=== PATIENT | female | born 1965 | race Caucasian/White ===

== ENCOUNTER 2022-03-03 17:22 | Inpatient (IN) | payer OTHER ==
[~2022-03-03] VITALS: Ht 154.9 cm; Wt 90.2 kg
[2022-03-03] MEDS ORDERED: CLON0.5T2 PO (17:40)
[2022-03-03] MEDS ORDERED: BUPR1SUB5 SL ×2 (17:53→23:36)
[2022-03-03] MEDS ORDERED: ASPI81CH33 PO (17:53)
[2022-03-03] MEDS ORDERED: ACETAMINOPHEN TAB 650MG DOSE (2X325MG) PO ONE (18:25)
[2022-03-03] MEDS ORDERED: NS 1,000 ML IV ONE ×2 (18:35→20:00)
[2022-03-03 19:15] LABS: INR 1.15; PROTHROMBIN TIME 15.1 SECONDS (12.7-14.5)
[2022-03-03 19:16] LABS: PARTIAL THROMBOPLASTIN TIME 30.4 SECONDS (25.9-37.0)
[2022-03-03 19:44] LABS: BASO % 0.3 % (0.0-1.0); EOS % 0.1 % (0.0-3.0); HEMATOCRIT 30.5 % (36.0-47.0); HEMOGLOBIN 10.1 g/dl (12.0-15.5); LYMPH # 0.5 10^3/uL (1.5-5.0); LYMPH % 4.3 % (24.0-44.0); MEAN CORPUSCULAR HEMOGLOBIN 25.6 pg (27.0-33.0); MEAN CORPUSCULAR HGB CONC 33.1 g/dl (32.0-36.5); MEAN CORPUSCULAR VOLUME 77.2 fl (80.0-96.0); MONO # 0.6 10^3/uL (0.0-0.8); MONO % 5.6 % (2.0-8.0); NEUTROPHILS % 88.9 % (36.0-66.0); PLATELET COUNT, AUTOMATED 102 10^3/uL (150-450); RED BLOOD COUNT 3.95 10^6/uL (4.00-5.40); WHITE BLOOD COUNT 11.3 10^3/uL (4.0-10.0)
[2022-03-03 19:55] LABS: ALBUMIN 2.7 GM/DL (3.2-5.2); ALT/SGPT 34 U/L (12-78); AMYLASE 14 U/L (25-115); BILIRUBIN,DIRECT 0.3 MG/DL (0.0-0.2); BILIRUBIN,TOTAL 0.7 MG/DL (0.2-1.0); BLOOD UREA NITROGEN 41 MG/DL (7-18); CALCIUM LEVEL 8.7 MG/DL (8.5-10.1); CARBON DIOXIDE LEVEL 21 MEQ/L (21-32); CHLORIDE LEVEL 96 MEQ/L (98-107); CREATININE FOR GFR 1.47 MG/DL (0.55-1.30); GLOMERULAR FILTRATION RATE 39.3 (>51); GLUCOSE, FASTING 446 MG/DL (70-100); POTASSIUM SERUM 4.5 MEQ/L (3.5-5.1); SODIUM LEVEL 128 MEQ/L (136-145); TOTAL PROTEIN 6.6 GM/DL (6.4-8.2)
[2022-03-03] MEDS ORDERED: INSULIN REGULAR IN 0.9 % NACL 100 UNIT in IV 1 EA IV SCH ×6 (20:00→21:30)
[2022-03-03] MEDS ORDERED: INSULIN IV RATE CHANGE DOCUMENTATION ML/HR XX SCH (20:00)
[2022-03-03 20:12] LABS: CK-MB VALUE MASS < 1.0 NG/ML (<3.6); CPK CREATINE PHOSPHOKINASE 105 U/L (26-192); MB/CK RELATIVE INDEX 0.95 (< OR =4)
[2022-03-03 20:45] LABS: HEMOGLOBIN A1c 8.8 %
[2022-03-03] MEDS ORDERED: ISOVUE-370 76% 100ML VIAL As Ordered ONE (20:55)
[2022-03-03 21:00] LABS: ACETONE/KETONE 25.92 MG/DL (<2.81); ETHYL ALCOHOL (ETHANOL) < 0.003 % (0.000-0.010)
[2022-03-03 21:13] LABS: AMORPHOUS SEDIMENT SMALL (NEGATIVE); APPEARANCE, URINE HAZY (CLEAR); BACTERIA, URINE AUTO 1+ (NEGATIVE); BILIRUBIN, URINE AUTO NEGATIVE (NEGATIVE); BLOOD, URINE BLOOD 1+ (NEGATIVE); COLOR, URINE YELLOW (YELLOW); GLUCOSE, URINE (UA) AUTO 3+ mg/dL (NEGATIVE); KETONE, URINE AUTO 1+ mg/dL (NEGATIVE); LEUKOCYTE ESTERASE, URINE AUTO TRACE (NEGATIVE); MUCUS, URINE SMALL (NEGATIVE); NITRITE, URINE AUTO NEGATIVE (NEGATIVE); PROTEIN, URINE AUTO 2+ mg/dL (NEGATIVE); RBC, URINE AUTO 1 /HPF (0-3); SPECIFIC GRAVITY URINE AUTO 1.016 (1.002-1.035); SQUAMOUS EPITHELIAL CELL UR AU 2 /HPF (0-6); UROBILINOGEN, URINE AUTO 0.2 mg/dL (0.0-2.0); WBC, URINE AUTO 13 /HPF (0-3)
[2022-03-03 21:22] LABS: ABG BASE EXCESS -4.4 (-2.0-2.0); ABG O2 SATURATION 96.6 % (95.0-99.0); ABG PARTIAL PRESSURE CO2 28.9 mmHg (35.0-45.0); ABG PARTIAL PRESSURE O2 96.8 mmHg (75.0-100.0); ABG STANDARD HCO3 20.8 MEQ/L (22.0-26.0); ABG TOTAL CO2 19.9 MEQ/L (22.0-29.0); ABG pH (ARTERIAL) 7.436 UNITS (7.350-7.450)
[2022-03-03] MEDS ORDERED: GLUCAGON INJ 1MG VIAL SC PRN (23:10)
[2022-03-03] MEDS ORDERED: GLUCOSE 4GM CHEW TABLET PO PRN (23:10)
[2022-03-03] MEDS ORDERED: DEXTROSE 50% 50 ML SYRINGE IV PRN (23:10)
[2022-03-03] MEDS ORDERED: CLON2TAB7 PO (23:36)
[2022-03-03] MEDS ORDERED: TIZA10TA PO (23:36)
[2022-03-03] MEDS ORDERED: VITA500038 PO (23:36)
[2022-03-03] MEDS ORDERED: PRAZ1CAP PO (23:36)
[2022-03-03] MEDS ORDERED: VRAY3CAP PO (23:36)
[2022-03-03] MEDS ORDERED: AMIT25TA17 PO (23:36)
[2022-03-03] MEDS ORDERED: RAMI1CAP24 PO (23:36)
[2022-03-03] MEDS ORDERED: ASPI-161 PO (23:36)
[2022-03-03] MEDS ORDERED: ELIQ5TAB PO (23:37)
[2022-03-03] MEDS ORDERED: PANT-23 PO (23:37)
[2022-03-03] MEDS ORDERED: LEXA1TAB PO (23:37)
[2022-03-03] MEDS ORDERED: BISO5TAB14 PO (23:37)
[2022-03-03] MEDS ORDERED: DILT180C78 PO (23:37)
[2022-03-03] MEDS ORDERED: ROPI1TAB3 PO (23:37)
[2022-03-03] MEDS ORDERED: PATIENT COMMENT (23:38)
[2022-03-03] MEDS ORDERED: KAZA1000 PO (23:40)
[2022-03-03] MEDS ORDERED: HOME MED LIST COMPLETE! XX SCH (23:45)
[2022-03-04] MEDS ORDERED: AZITHROMYCIN INJ 500 MG, VIAL MATE ADAPTER 1 EACH in NS 250 ML IV SCH ×3
[2022-03-04] MEDS: INSULIN LISPRO (NovoLOG) PER UNIT SC SCH ×5 (00:18→23:14)
[2022-03-04] MEDS: CEFEPIME HCL 2 GM in D5W 50 ML IV SCH ×3 (01:40→21:22)
[2022-03-04] MEDS ORDERED: VANCOMYCIN HCL 1,000 MG, VIAL MATE ADAPTER 1 EACH in NS 250 ML IV SCH ×2 (02:00→17:20)
[2022-03-04 02:11] LABS: AMPHETAMINES LEVEL URINE NEGATIVE (NEGATIVE); BARBITURATES URINE NEGATIVE (NEGATIVE); BENZODIAZEPINES URINE NEGATIVE (NEGATIVE); CANNABINOIDS URINE NEGATIVE (NEGATIVE); COCAINE METABOLITE URINE NEGATIVE (NEGATIVE); METHADONE URINE NEGATIVE (NEGATIVE); OPIATES URINE NEGATIVE (NEGATIVE); PHENCYCLIDINE URINE NEGATIVE (NEGATIVE)
[2022-03-04] MEDS: ACETAMINOPHEN TAB 650MG DOSE (2X325MG) PO PRN ×3 (02:44→21:23)
[2022-03-04] MEDS ORDERED: VANCOMYCIN HCL 1,000 MG, VIAL MATE ADAPTER 1 EACH in NS 250 ML IV ONE (03:00)
[2022-03-04 03:03] VITALS: BP 124/60
[2022-03-04] MEDS: HEPARIN SOD (PORCINE) 5000UNITS/ML 1ML VIAL/SYRINGE SC SCH ×2 (05:16→14:29)
[2022-03-04 05:46] LABS: HEMATOCRIT 26.7 % (36.0-47.0); HEMOGLOBIN 8.7 g/dl (12.0-15.5); MEAN CORPUSCULAR HEMOGLOBIN 24.9 pg (27.0-33.0); MEAN CORPUSCULAR HGB CONC 32.6 g/dl (32.0-36.5); MEAN CORPUSCULAR VOLUME 76.5 fl (80.0-96.0); RED BLOOD COUNT 3.49 10^6/uL (4.00-5.40); WHITE BLOOD COUNT 7.1 10^3/uL (4.0-10.0)
[2022-03-04 06:16] LABS: ALBUMIN 2.2 GM/DL (3.2-5.2); BILIRUBIN,TOTAL 0.6 MG/DL (0.2-1.0); CALCIUM LEVEL 7.9 MG/DL (8.5-10.1); CREATININE FOR GFR 1.15 MG/DL (0.55-1.30); GLOMERULAR FILTRATION RATE 52.2 (>51); POTASSIUM SERUM 3.9 MEQ/L (3.5-5.1); TOTAL PROTEIN 5.6 GM/DL (6.4-8.2)
[2022-03-04 06:17] LABS: PLATELET COUNT, AUTOMATED 85 10^3/uL (150-450)
[2022-03-04 07:26] VITALS: BP 125/66
[2022-03-04 08:45] LABS: VANCOMYCIN RANDOM 43.4 UG/ML
[2022-03-04] MEDS: ASPIRIN 81MG ENTERIC TABLET PO SCH (09:00)
[2022-03-04] MEDS: bisoproloL fumarate 5 MG TAB PO SCH (09:00)
[2022-03-04] MEDS: diltiaZEM **CD** 180 MG CAP PO SCH (09:00)
[2022-03-04] MEDS: PANTOPRAZOLE 40MG TAB (PROTONIX) PO SCH (09:00)
[2022-03-04] MEDS: ESCITALOPRAM OXALATE 10 MG TAB (LEXAPRO) PO SCH (09:00)
[2022-03-04] MEDS: NS 1,000 ML IV SCH ×2 (10:55→23:13)
[2022-03-04] MEDS ORDERED: PROHANCE 279.3MG/ML 15ML VIAL As Ordered ONE (11:24)
[2022-03-04 12:20] VITALS: BP 148/76
[2022-03-04 13:34] LABS: ERYTHROCYTE SEDIMENTATION RATE 128 mm/hr (0-30)
[2022-03-04 16:00] VITALS: BP 163/80
[2022-03-04] MEDS ORDERED: AMPICILLIN SOD 2 GM in D5W MINI-BAG PLUS 100 ML IV SCH (19:00)
[2022-03-04 20:00] VITALS: BP 139/87
[2022-03-04] MEDS ORDERED: LEVEMIR (INSULIN DETEMIR) 1 UNITS/0.01ML SC SCH (21:00)
[2022-03-04] MEDS: BUPRENORPHINE/NALOXONE 8-2MG SUBLINGUAL TABLET(SUBOXONE) SL SCH (21:23)
[2022-03-04] MEDS: APIXABAN 5 MG TAB (ELIQUIS) PO SCH (21:23)
[2022-03-04] MEDS: rOPINIRole 1MG TAB PO SCH (21:23)
[2022-03-05] VITALS: BP 101/57
[2022-03-05 04:00] VITALS: BP 164/84
[2022-03-05] MEDS: CEFEPIME HCL 2 GM in D5W 50 ML IV SCH ×3 (05:13→20:41)
[2022-03-05] MEDS: INSULIN LISPRO (NovoLOG) PER UNIT SC SCH ×4 (05:14→23:25)
[2022-03-05 06:26] LABS: HEMATOCRIT 29.9 % (36.0-47.0); HEMOGLOBIN 9.6 g/dl (12.0-15.5); MEAN CORPUSCULAR HEMOGLOBIN 25.3 pg (27.0-33.0); MEAN CORPUSCULAR HGB CONC 32.1 g/dl (32.0-36.5); MEAN CORPUSCULAR VOLUME 78.9 fl (80.0-96.0); RED BLOOD COUNT 3.79 10^6/uL (4.00-5.40); WHITE BLOOD COUNT 4.4 10^3/uL (4.0-10.0)
[2022-03-05 06:42] LABS: ALBUMIN 2.1 GM/DL (3.2-5.2); ALT/SGPT 19 U/L (12-78); BILIRUBIN,TOTAL 0.5 MG/DL (0.2-1.0); BLOOD UREA NITROGEN 20 MG/DL (7-18); CALCIUM LEVEL 8.2 MG/DL (8.5-10.1); CARBON DIOXIDE LEVEL 23 MEQ/L (21-32); CHLORIDE LEVEL 105 MEQ/L (98-107); FERRITIN 118 NG/ML (8-252); GLOMERULAR FILTRATION RATE > 60.0 (>51); GLUCOSE, FASTING 202 MG/DL (70-100); IRON (FE) 12 UG/DL (50-170); POTASSIUM SERUM 3.7 MEQ/L (3.5-5.1); SODIUM LEVEL 135 MEQ/L (136-145); TOTAL IRON BINDING CAPACITY 239 UG/DL (250-450); TOTAL PROTEIN 5.4 GM/DL (6.4-8.2)
[2022-03-05 06:47] LABS: PLATELET COUNT, AUTOMATED 79 10^3/uL (150-450)
[2022-03-05 08:00] VITALS: BP 145/69
[2022-03-05] MEDS: APIXABAN 5 MG TAB (ELIQUIS) PO SCH ×3 (09:00→20:42)
[2022-03-05] MEDS: ramipriL 5 MG CAP PO SCH (09:41)
[2022-03-05] MEDS: LEVEMIR (INSULIN DETEMIR) 1 UNITS/0.01ML SC SCH ×2 (09:41→20:41)
[2022-03-05] MEDS: bisoproloL fumarate 5 MG TAB PO SCH (09:41)
[2022-03-05] MEDS: ASPIRIN 81MG ENTERIC TABLET PO SCH (09:41)
[2022-03-05] MEDS: PANTOPRAZOLE 40MG TAB (PROTONIX) PO SCH (09:42)
[2022-03-05] MEDS: CARIPRAZINE 3MG CAPSULE (VRAYLAR) PO SCH (09:42)
[2022-03-05] MEDS: ESCITALOPRAM OXALATE 10 MG TAB (LEXAPRO) PO SCH (09:42)
[2022-03-05] MEDS: diltiaZEM **CD** 180 MG CAP PO SCH (09:42)
[2022-03-05] MEDS: BUPRENORPHINE/NALOXONE 8-2MG SUBLINGUAL TABLET(SUBOXONE) SL SCH ×2 (09:44→20:42)
[2022-03-05 11:58] VITALS: BP 155/68
[2022-03-05] MEDS: NS 1,000 ML IV SCH (13:16)
[2022-03-05] MEDS: FERROUS SULFATE 325MG TAB PO SCH ×2 (14:54→20:42)
[2022-03-05] MEDS: DOCUSATE SODIUM 100MG CAPSULE PO SCH ×2 (14:54→20:42)
[2022-03-05 15:30] VITALS: BP 123/58
[2022-03-05 20:20] VITALS: BP 124/61
[2022-03-05] MEDS: SENNA 8.6 MG TAB (SENOKOT) PO SCH (20:41)
[2022-03-05] MEDS: rOPINIRole 1MG TAB PO SCH (20:42)
[2022-03-06] VITALS (7 sets, daily range): BP systolic 123–147; BP diastolic 40–72
[2022-03-06] MEDS: NS 1,000 ML IV SCH ×2 (02:54→17:30)
[2022-03-06] MEDS: CEFEPIME HCL 2 GM in D5W 50 ML IV SCH (05:16)
[2022-03-06] MEDS: INSULIN LISPRO (NovoLOG) PER UNIT SC SCH ×3 (05:17→18:00)
[2022-03-06 06:02] LABS: HEMATOCRIT 27.4 % (36.0-47.0); HEMOGLOBIN 8.8 g/dl (12.0-15.5); MEAN CORPUSCULAR HEMOGLOBIN 24.9 pg (27.0-33.0); MEAN CORPUSCULAR HGB CONC 32.1 g/dl (32.0-36.5); MEAN CORPUSCULAR VOLUME 77.6 fl (80.0-96.0); PLATELET COUNT, AUTOMATED 104 10^3/uL (150-450); RED BLOOD COUNT 3.53 10^6/uL (4.00-5.40); WHITE BLOOD COUNT 5.8 10^3/uL (4.0-10.0)
[2022-03-06 06:31] LABS: ALT/SGPT 17 U/L (12-78); BILIRUBIN,TOTAL 0.4 MG/DL (0.2-1.0); BLOOD UREA NITROGEN 19 MG/DL (7-18); CALCIUM LEVEL 8.3 MG/DL (8.5-10.1); CARBON DIOXIDE LEVEL 23 MEQ/L (21-32); CHLORIDE LEVEL 107 MEQ/L (98-107); CREATININE FOR GFR 0.94 MG/DL (0.55-1.30); GLOMERULAR FILTRATION RATE > 60.0 (>51); GLUCOSE, FASTING 105 MG/DL (70-100); POTASSIUM SERUM 3.5 MEQ/L (3.5-5.1); SODIUM LEVEL 138 MEQ/L (136-145); TOTAL PROTEIN 5.3 GM/DL (6.4-8.2)
[2022-03-06] MEDS: ESCITALOPRAM OXALATE 10 MG TAB (LEXAPRO) PO SCH ×2 (09:00→09:29)
[2022-03-06] MEDS: APIXABAN 5 MG TAB (ELIQUIS) PO SCH ×2 (09:00→20:59)
[2022-03-06] MEDS: BUPRENORPHINE/NALOXONE 8-2MG SUBLINGUAL TABLET(SUBOXONE) SL SCH ×2 (09:00→21:00)
[2022-03-06] MEDS: DOCUSATE SODIUM 100MG CAPSULE PO SCH ×2 (09:00→20:59)
[2022-03-06] MEDS: diltiaZEM **CD** 180 MG CAP PO SCH (09:29)
[2022-03-06] MEDS: PANTOPRAZOLE 40MG TAB (PROTONIX) PO SCH (09:29)
[2022-03-06] MEDS: FERROUS SULFATE 325MG TAB PO SCH ×2 (09:29→20:59)
[2022-03-06] MEDS: LEVEMIR (INSULIN DETEMIR) 1 UNITS/0.01ML SC SCH ×2 (09:29→20:59)
[2022-03-06] MEDS: bisoproloL fumarate 5 MG TAB PO SCH (09:30)
[2022-03-06] MEDS: ramipriL 5 MG CAP PO SCH (09:30)
[2022-03-06] MEDS: CARIPRAZINE 3MG CAPSULE (VRAYLAR) PO SCH (09:30)
[2022-03-06] MEDS: ASPIRIN 81MG ENTERIC TABLET PO SCH (09:30)
[2022-03-06] MEDS: cefTRIAXone SOD 1 GM in D5W MINI-BAG PLUS 50 ML IV SCH (13:23)
[2022-03-06] MEDS: rOPINIRole 1MG TAB PO SCH (20:59)
[2022-03-06] MEDS: SENNA 8.6 MG TAB (SENOKOT) PO SCH (20:59)
[2022-03-06] MEDS ORDERED: INSULIN LISPRO (NovoLOG) PER UNIT SC SCH (21:00)
[2022-03-07 04:05] VITALS: BP 145/71
[2022-03-07] MEDS: NS 1,000 ML IV SCH (05:53)
[2022-03-07 05:55] LABS: HEMATOCRIT 28.1 % (36.0-47.0); MEAN CORPUSCULAR HEMOGLOBIN 24.5 pg (27.0-33.0); MEAN CORPUSCULAR VOLUME 76.6 fl (80.0-96.0); PLATELET COUNT, AUTOMATED 127 10^3/uL (150-450); RED BLOOD COUNT 3.67 10^6/uL (4.00-5.40); WHITE BLOOD COUNT 6.3 10^3/uL (4.0-10.0)
[2022-03-07 06:23] LABS: ALT/SGPT 14 U/L (12-78); BILIRUBIN,TOTAL 0.4 MG/DL (0.2-1.0); BLOOD UREA NITROGEN 14 MG/DL (7-18); CALCIUM LEVEL 8.3 MG/DL (8.5-10.1); CARBON DIOXIDE LEVEL 26 MEQ/L (21-32); CHLORIDE LEVEL 110 MEQ/L (98-107); CREATININE FOR GFR 0.82 MG/DL (0.55-1.30); GLOMERULAR FILTRATION RATE > 60.0 (>51); GLUCOSE, FASTING 82 MG/DL (70-100); POTASSIUM SERUM 3.6 MEQ/L (3.5-5.1); SODIUM LEVEL 142 MEQ/L (136-145); TOTAL PROTEIN 5.4 GM/DL (6.4-8.2)
[2022-03-07] MEDS: INSULIN LISPRO (NovoLOG) PER UNIT SC SCH ×2 (07:30→12:00)
[2022-03-07 07:34] VITALS: BP 143/66
[2022-03-07] MEDS ORDERED: SENN18TA PO (07:43)
[2022-03-07] MEDS ORDERED: FERR1TAB8 PO (07:43)
[2022-03-07] MEDS ORDERED: COLA100C5 PO (07:43)
[2022-03-07] MEDS ORDERED: LEVO500T4 PO (07:43)
[2022-03-07] MEDS: PANTOPRAZOLE 40MG TAB (PROTONIX) PO SCH (09:00)
[2022-03-07] MEDS: CARIPRAZINE 3MG CAPSULE (VRAYLAR) PO SCH (09:00)
[2022-03-07] MEDS: ESCITALOPRAM OXALATE 10 MG TAB (LEXAPRO) PO SCH (09:00)
[2022-03-07 09:01] VITALS: BP 143/66
[2022-03-07] MEDS: FERROUS SULFATE 325MG TAB PO SCH (09:01)
[2022-03-07] MEDS: ASPIRIN 81MG ENTERIC TABLET PO SCH (09:01)
[2022-03-07] MEDS: DOCUSATE SODIUM 100MG CAPSULE PO SCH (09:01)
[2022-03-07] MEDS: APIXABAN 5 MG TAB (ELIQUIS) PO SCH (09:01)
[2022-03-07] MEDS: BUPRENORPHINE/NALOXONE 8-2MG SUBLINGUAL TABLET(SUBOXONE) SL SCH (09:01)
[2022-03-07] MEDS: ramipriL 5 MG CAP PO SCH (09:01)
[2022-03-07] MEDS: diltiaZEM **CD** 180 MG CAP PO SCH (09:01)
[2022-03-07] MEDS: LEVEMIR (INSULIN DETEMIR) 1 UNITS/0.01ML SC SCH (09:02)
[2022-03-07] MEDS: bisoproloL fumarate 5 MG TAB PO SCH (09:02)
[2022-03-07] MEDS: cefTRIAXone SOD 1 GM in D5W MINI-BAG PLUS 50 ML IV SCH (13:00)
== END 2022-03-07 13:25 | disposition home or self-care (01) | DRG 52 ==
LOC: M ED 17:22 → M ED INP 23:06 → M PCU 03-04 03:00
PROVIDERS: ADMIT Internal Medicine; ATTEND Internal Medicine
DX: G93.41 Metabolic encephalopathy (principal); J18.9 Pneumonia, unspecified organism; D69.6 Thrombocytopenia, unspecified; R78.81 Bacteremia; E11.65 Type 2 diabetes mellitus with hyperglycemia; R16.1 Splenomegaly, not elsewhere classified; K74.60 Unspecified cirrhosis of liver; R50.9 Fever, unspecified; Z79.891 Long term (current) use of opiate analgesic; D50.9 Iron deficiency anemia, unspecified; Z20.822 Contact with and (suspected) exposure to COVID-19; Z98.84 Bariatric surgery status; Z90.49 Acquired absence of other specified parts of digestive tract; Z79.82 Long term (current) use of aspirin; Z79.899 Other long term (current) drug therapy; B96.20 Unspecified Escherichia coli [E. coli] as the cause of diseases classified elsewhere; I10 Essential (primary) hypertension; Z86.73 Personal history of transient ischemic attack (TIA), and cerebral infarction without residual deficits; N39.0 Urinary tract infection, site not specified